=== PATIENT | female | born 1985 | race Hispanic/Latino ===

== ENCOUNTER 2017-11-17 17:48 | Emergency (ER) | payer MEDICAID ==
[2017-11-17 18:01] VITALS: BP 116/80
[2017-11-17] MEDS ORDERED: TYLENOL PO ONE (18:01)
[2017-11-17] MEDS ORDERED: TYLENOL ONE (18:03)
[2017-11-17] MEDS ORDERED: BENADRYL IM ONE (21:16)
[2017-11-17] MEDS ORDERED: DECADRON IM ONE (21:16)
[2017-11-17] MEDS ORDERED: PEPCID PO ONE (21:16)
--- NOTE | 2017-11-17 22:19 | Emergency Department Report ---
- General Chief complaint: Skin Rash Stated complaint: RASH Time Seen by Provider: 11/17/17 20:12 Source: patient Mode of arrival: Ambulatory Limitations: No Limitations - History of Present Illness Initial comments: 32-year-old female past medical history GERD, asthma, hypertension presents with complaint of itchy rash that started this morning. Denies any fevers chills nausea or vomiting. Denies any new cosmetics pets new medications or any recent travel denies any food allergies. Patient states that started in trunk and spread outward. States she has slightly sore throat and noticed a small lesion inside her mouth. Patient is awake alert and oriented 3 fully lucid states she took some Benadryl before coming to the hospital. MD complaint: rash -: This morning Location: head, face, neck, chest, back, LUE, RUE Severity: moderate Quality: other (itching) Consistency: intermittent Improves with: none Worsens with: none Context: none, recent illness Treatments Prior to Arrival: Benadryl - Related Data Previous Rx's Medication Instructions Recorded Last Taken Type Sulfamethoxazole/Trimethoprim 1 each PO BID #10 tablet 07/02/14 Unknown Rx [Bactrim Ds] Omeprazole [PriLOSEC] 20 mg PO QDAY #30 capsule.dr 10/23/14 Unknown Rx Permethrin 5% [Acticin 5% CREAM] 2 applicatio TP ONCE #2 tube 10/23/14 Unknown Rx Prednisone [Prednisone 10 mg 10 mg PO .TAPER #1 tab.ds.pk 10/23/14 Unknown Rx (6-Day Pack, 21 Tabs)] Albuterol Sulfate [Ventolin HFA] 2 puff IH Q4H PRN #1 hfa.aer.ad 04/12/15 Unknown Rx Ibuprofen [Motrin 800 MG tab] 800 mg PO TID PRN #30 tablet 04/12/15 Unknown Rx methOCARBAMOL [Robaxin] 500 mg PO BID #20 tab 04/12/15 Unknown Rx traMADol [Ultram 50 MG tab] 50 mg PO BID PRN #10 tablet 04/12/15 Unknown Rx Omeprazole Magnesium [PriLOSEC Otc] 20 mg PO QDAY #30 tablet.dr 07/10/16 Unknown Rx traMADol [Ultram 50 MG tab] 50 mg PO Q6HR PRN #16 tablet 07/10/16 Unknown Rx Colloidal Oatmeal [Oatmeal Bath] 1 each TP QDAY #1 packet 11/17/17 Unknown Rx Hydrocortisone 1% [Hydrocortisone 1 applicatio TP TID PRN #1 tube 11/17/17 Unknown Rx 1% CREAM] Hydroxyzine HCl 25 mg PO BID PRN #30 tablet 11/17/17 Unknown Rx Loratadine [Claritin] 10 mg PO DAILY PRN #30 tablet 11/17/17 Unknown Rx methylPREDNISolone [Medrol] 4 mg PO QDAY #1 tab.ds.pk 11/17/17 Unknown Rx Allergies Allergy/AdvReac Type Severity Reaction Status Date / Time No Known Allergies Allergy Verified 04/12/15 13:08 Abscess Boil HPI - HPI Chief Complaint: Skin Rash Stated Complaint: RASH Time Seen by Provider: 11/17/17 20:12 Home Medications: Previous Rx's Medication Instructions Recorded Last Taken Type Sulfamethoxazole/Trimethoprim 1 each PO BID #10 tablet 07/02/14 Unknown Rx [Bactrim Ds] Omeprazole [PriLOSEC] 20 mg PO QDAY #30 capsule. 10/23/14 Unknown Rx Permethrin 5% [Acticin 5% CREAM] 2 applicatio TP ONCE #2 tube 10/23/14 Unknown Rx Prednisone [Prednisone 10 mg 10 mg PO .TAPER #1 tab.ds.pk 10/23/14 Unknown Rx (6-Day Pack, 21 Tabs)] Albuterol Sulfate [Ventolin HFA] 2 puff IH Q4H PRN #1 hfa.aer.ad 04/12/15 Unknown Rx Ibuprofen [Motrin 800 MG tab] 800 mg PO TID PRN #30 tablet 04/12/15 Unknown Rx methOCARBAMOL [Robaxin] 500 mg PO BID #20 tab 04/12/15 Unknown Rx traMADol [Ultram 50 MG tab] 50 mg PO BID PRN #10 tablet 04/12/15 Unknown Rx Omeprazole Magnesium [PriLOSEC Otc] 20 mg PO QDAY #30 tablet. 07/10/16 Unknown Rx traMADol [Ultram 50 MG tab] 50 mg PO Q6HR PRN #16 tablet 07/10/16 Unknown Rx Colloidal Oatmeal [Oatmeal Bath] 1 each TP QDAY #1 packet 11/17/17 Unknown Rx Hydrocortisone 1% [Hydrocortisone 1 applicatio TP TID PRN #1 tube 11/17/17 Unknown Rx 1% CREAM] Hydroxyzine HCl 25 mg PO BID PRN #30 tablet 11/17/17 Unknown Rx Loratadine [Claritin] 10 mg PO DAILY PRN #30 tablet 11/17/17 Unknown Rx methylPREDNISolone [Medrol] 4 mg PO QDAY #1 tab.ds.pk 11/17/17 Unknown Rx Allergies/Adverse Reactions: Allergies Allergy/AdvReac Type Severity Reaction Status Date / Time No Known Allergies Allergy Verified 04/12/15 13:08 ED Review of Systems ROS: Stated complaint: RASH Other details as noted in HPI Constitutional: denies: chills, fever Eyes: denies: eye pain, eye discharge, vision change ENT: denies: ear pain, throat pain Respiratory: denies: cough, shortness of breath, wheezing Cardiovascular: denies: chest pain, palpitations Endocrine: no symptoms reported Gastrointestinal: denies: abdominal pain, nausea, diarrhea Genitourinary: denies: urgency, dysuria, discharge Musculoskeletal: denies: back pain, joint swelling, arthralgia Skin: rash, pruritus. denies: lesions Neurological: denies: headache, weakness, paresthesias Psychiatric: denies: anxiety, depression Hematological/Lymphatic: denies: easy bleeding, easy bruising ED Past Medical Hx - Past Medical History Hx Hypertension: Yes Hx GERD: Yes Hx Asthma: Yes - Surgical History Additional Surgical History: tubal ligation - Social History Smoking Status: Current Some Day Smoker Substance Use Type: Alcohol - Medications Home Medications: Home Medications Medication Instructions Recorded Confirmed Last Taken Type Sulfamethoxazole/Trimethoprim 1 each PO BID #10 tablet 07/02/14 Unknown Rx [Bactrim Ds] Omeprazole [PriLOSEC] 20 mg PO QDAY #30 capsule.dr 10/23/14 Unknown Rx Permethrin 5% [Acticin 5% CREAM] 2 applicatio TP ONCE #2 tube 10/23/14 Unknown Rx Prednisone [Prednisone 10 mg 10 mg PO .TAPER #1 tab.ds.pk 10/23/14 Unknown Rx (6-Day Pack, 21 Tabs)] Albuterol Sulfate [Ventolin HFA] 2 puff IH Q4H PRN #1 hfa.aer.ad 04/12/15 Unknown Rx Ibuprofen [Motrin 800 MG tab] 800 mg PO TID PRN #30 tablet 04/12/15 Unknown Rx methOCARBAMOL [Robaxin] 500 mg PO BID #20 tab 04/12/15 Unknown Rx traMADol [Ultram 50 MG tab] 50 mg PO BID PRN #10 tablet 04/12/15 Unknown Rx Omeprazole Magnesium [PriLOSEC Otc] 20 mg PO QDAY #30 tablet.dr 07/10/16 Unknown Rx traMADol [Ultram 50 MG tab] 50 mg PO Q6HR PRN #16 tablet 07/10/16 Unknown Rx Colloidal Oatmeal [Oatmeal Bath] 1 each TP QDAY #1 packet 11/17/17 Unknown Rx Hydrocortisone 1% [Hydrocortisone 1 applicatio TP TID PRN #1 tube 11/17/17 Unknown Rx 1% CREAM] Hydroxyzine HCl 25 mg PO BID PRN #30 tablet 11/17/17 Unknown Rx Loratadine [Claritin] 10 mg PO DAILY PRN #30 tablet 11/17/17 Unknown Rx methylPREDNISolone [Medrol] 4 mg PO QDAY #1 tab.ds.pk 11/17/17 Unknown Rx ED Physical Exam - General Limitations: No Limitations General appearance: alert, in no apparent distress - Head Head exam: Present: atraumatic, normocephalic - Eye Eye exam: Present: normal appearance, PERRL, EOMI - ENT ENT exam: Present: mucous membranes moist - Expanded ENT Exam Expanded Mouth exam: Present: other (2 apthous ulcers in oropharynx.) - Neck Neck exam: Present: normal inspection - Respiratory Respiratory exam: Present: normal lung sounds bilaterally. Absent: respiratory distress - Cardiovascular Cardiovascular Exam: Present: regular rate, normal rhythm. Absent: systolic murmur, diastolic murmur, rubs, gallop - GI/Abdominal GI/Abdominal exam: Present: soft, normal bowel sounds - Extremities Exam Extremities exam: Present: normal inspection - Back Exam Back exam: Present: normal inspection - Neurological Exam Neurological exam: Present: alert, oriented X3, CN II-XII intact, normal gait - Psychiatric Psychiatric exam: Present: normal affect, normal mood - Skin Skin exam: Present: warm, dry, intact, normal color. Absent: rash - Expanded Skin Exam Expanded Type of lesion: Present: rash Distribution of rash: head, face, neck, chest, back Description of rash: Present: macular, papular 1 - Maculopapular rash in this region here 2 - Nora tree like pattern on back of maculopapular rash ED Course Vital Signs 11/17/17 11/17/17 17:55 18:03 Temperature 99.8 F H Pulse Rate 104 H Respiratory 18 18 Rate Blood Pressure 116/80 O2 Sat by Pulse 99 Oximetry ED Medical Decision Making - Medical Decision Making A/P: Clinical pityriasis rosea 1-no clinical signs of angioedema or anaphylaxis. Patient speaking in full sentences, no oropharyngeal swelling. Clinical pattern of rash and distribution suggestive of pityriasis rosea 2-hydroxyzine when necessary, Claritin, Medrol Dosepak 3-follow-up with primary care and dermatology Critical care attestation.: If time is entered above; I have spent that time in minutes in the direct care of this critically ill patient, excluding procedure time. ED Disposition Clinical Impression: Pityriasis rosea Disposition: TO HOME OR SELFCARE Is pt being admited?: No Does the pt Need Aspirin: No Condition: Stable Instructions: Pityriasis rosea (ED), Acute Rash (ED), Itchy Skin (ED) Prescriptions: Colloidal Oatmeal [Oatmeal Bath] 1 each TP QDAY #1 packet Hydrocortisone 1% [Hydrocortisone 1% CREAM] 1 applicatio TP TID PRN #1 tube PRN Reason: Itching Hydroxyzine HCl 25 mg PO BID PRN #30 tablet PRN Reason: Itching Loratadine [Claritin] 10 mg PO DAILY PRN #30 tablet PRN Reason: Itching methylPREDNISolone [Medrol] 4 mg PO QDAY #1 tab.ds.pk Referrals: BRANDIE EASTON MD [Primary Care Provider] - 3-5 Days [facility] [Provider Group] - 3-5 Days [facility] [Outside] - 3-5 Days [facility] [Outside] - 3-5 Days Forms: Work/School Release Form(ED) Time of Disposition: 22:24
== END 2017-11-17 22:51 | disposition home or self-care (01) ==
LOC: ED 17:48
DX: L42 Pityriasis rosea (principal); I10 Essential (primary) hypertension; K21.9 Gastro-esophageal reflux disease without esophagitis; F17.200 Nicotine dependence, unspecified, uncomplicated
CPT/HCPCS: 96372; 99282; J1100; J1200

== ENCOUNTER 2018-12-20 08:39 | Emergency (ER) | payer MEDICAID, OTHER ==
--- NOTE | 2018-12-20 09:21 | Emergency Department Report ---
- General Chief Complaint: Upper Respiratory Infection Stated Complaint: SORETHROAT/CP/HBP Time Seen by Provider: 12/20/18 09:15 Source: patient Mode of arrival: Ambulatory Limitations: No Limitations - History of Present Illness MD Complaint: cough, sore throat, rhinorrhea, nasal congestion Severity: moderate Consistency: constant Context: sick contacts - Related Data Previous Rx's Medication Instructions Recorded Last Taken Type Sulfamethoxazole/Trimethoprim 1 each PO BID #10 tablet 07/02/14 Unknown Rx [Bactrim Ds] Omeprazole [PriLOSEC] 20 mg PO QDAY #30 capsule. 10/23/14 Unknown Rx Permethrin 5% [Acticin 5% CREAM] 2 applicatio TP ONCE #2 tube 10/23/14 Unknown Rx Prednisone [Prednisone 10 mg 10 mg PO .TAPER #1 tab.ds.pk 10/23/14 Unknown Rx (6-Day Pack, 21 Tabs)] Albuterol Sulfate [Ventolin HFA] 2 puff IH Q4H PRN #1 hfa.aer.ad 04/12/15 Unknown Rx Ibuprofen [Motrin 800 MG tab] 800 mg PO TID PRN #30 tablet 04/12/15 Unknown Rx methOCARBAMOL [Robaxin] 500 mg PO BID #20 tab 04/12/15 Unknown Rx traMADol [Ultram 50 MG tab] 50 mg PO BID PRN #10 tablet 04/12/15 Unknown Rx Omeprazole Magnesium [PriLOSEC Otc] 20 mg PO QDAY #30 tablet. 07/10/16 Unknown Rx traMADol [Ultram 50 MG tab] 50 mg PO Q6HR PRN #16 tablet 07/10/16 Unknown Rx Colloidal Oatmeal [Oatmeal Bath] 1 each TP QDAY #1 packet 11/17/17 Unknown Rx Hydrocortisone 1% [Hydrocortisone 1 applicatio TP TID PRN #1 tube 11/17/17 Unknown Rx 1% CREAM] Loratadine [Claritin] 10 mg PO DAILY PRN #30 tablet 11/17/17 Unknown Rx hydrOXYzine HCl [Hydroxyzine HCl] 25 mg PO BID PRN #30 tablet 11/17/17 Unknown Rx methylPREDNISolone [Medrol] 4 mg PO QDAY #1 tab.ds.pk 11/17/17 Unknown Rx Allergies Allergy/AdvReac Type Severity Reaction Status Date / Time No Known Allergies Allergy Verified 04/12/15 13:08 ED Review of Systems ROS: Stated complaint: SORETHROAT/CP/HBP Other details as noted in HPI Comment: All other systems reviewed and negative Constitutional: denies: chills, fever ENT: ear pain, throat pain, congestion Respiratory: cough. denies: orthopnea, shortness of breath, SOB with exertion, SOB at rest, wheezing Cardiovascular: denies: chest pain, palpitations, dyspnea on exertion Gastrointestinal: denies: abdominal pain, nausea, vomiting, diarrhea, constipation, hematemesis, melena, hematochezia Neurological: denies: headache, weakness, numbness, paresthesias, confusion ED Past Medical Hx - Past Medical History Previous Medical History?: Yes Hx Hypertension: Yes Hx GERD: Yes Hx Asthma: Yes - Surgical History Past Surgical History?: Yes Additional Surgical History: tubal ligation - Social History Smoking Status: Current Some Day Smoker Substance Use Type: Alcohol - Medications Home Medications: Home Medications Medication Instructions Recorded Confirmed Last Taken Type Sulfamethoxazole/Trimethoprim 1 each PO BID #10 tablet 07/02/14 Unknown Rx [Bactrim Ds] Omeprazole [PriLOSEC] 20 mg PO QDAY #30 capsule. 10/23/14 Unknown Rx Permethrin 5% [Acticin 5% CREAM] 2 applicatio TP ONCE #2 tube 10/23/14 Unknown Rx Prednisone [Prednisone 10 mg 10 mg PO .TAPER #1 tab.ds.pk 10/23/14 Unknown Rx (6-Day Pack, 21 Tabs)] Albuterol Sulfate [Ventolin HFA] 2 puff IH Q4H PRN #1 hfa.aer.ad 04/12/15 Unknown Rx Ibuprofen [Motrin 800 MG tab] 800 mg PO TID PRN #30 tablet 04/12/15 Unknown Rx methOCARBAMOL [Robaxin] 500 mg PO BID #20 tab 04/12/15 Unknown Rx traMADol [Ultram 50 MG tab] 50 mg PO BID PRN #10 tablet 04/12/15 Unknown Rx Omeprazole Magnesium [PriLOSEC Otc] 20 mg PO QDAY #30 tablet. 07/10/16 Unknown Rx traMADol [Ultram 50 MG tab] 50 mg PO Q6HR PRN #16 tablet 07/10/16 Unknown Rx Colloidal Oatmeal [Oatmeal Bath] 1 each TP QDAY #1 packet 11/17/17 Unknown Rx Hydrocortisone 1% [Hydrocortisone 1 applicatio TP TID PRN #1 tube 11/17/17 Unknown Rx 1% CREAM] Loratadine [Claritin] 10 mg PO DAILY PRN #30 tablet 11/17/17 Unknown Rx hydrOXYzine HCl [Hydroxyzine HCl] 25 mg PO BID PRN #30 tablet 11/17/17 Unknown Rx methylPREDNISolone [Medrol] 4 mg PO QDAY #1 tab.ds.pk 11/17/17 Unknown Rx ED Physical Exam - General Limitations: No Limitations General appearance: alert, in no apparent distress - Head Head exam: Present: atraumatic, normocephalic, normal inspection - Eye Eye exam: Present: normal appearance, PERRL - ENT ENT exam: Present: normal exam, normal orophraynx, mucous membranes moist - Neck Neck exam: Present: normal inspection, full ROM. Absent: tenderness, meningismus, lymphadenopathy, thyromegaly - Respiratory Respiratory exam: Present: normal lung sounds bilaterally. Absent: respiratory distress, wheezes, rales, rhonchi, stridor, chest wall tenderness, accessory muscle use, decreased breath sounds, prolonged expiratory - Cardiovascular Cardiovascular Exam: Present: regular rate, normal rhythm, normal heart sounds - GI/Abdominal GI/Abdominal exam: Present: soft, normal bowel sounds. Absent: distended, tende rness, guarding, rebound, rigid, organomegaly, pulsatile mass, hernia - Extremities Exam Extremities exam: Present: normal inspection, full ROM, normal capillary refill. Absent: calf tenderness - Back Exam Back exam: Present: normal inspection, full ROM. Absent: tenderness, CVA tenderness (R), CVA tenderness (L), muscle spasm, paraspinal tenderness, vertebral tenderness - Neurological Exam Neurological exam: Present: alert, oriented X3, CN II-XII intact, normal gait, reflexes normal - Psychiatric Psychiatric exam: Present: normal mood - Skin Skin exam: Present: warm, intact, normal color ED Course Vital Signs 12/20/18 08:56 Temperature 99.0 F Pulse Rate 86 Respiratory 16 Rate Blood Pressure 128/83 O2 Sat by Pulse 98 Oximetry Critical care attestation.: If time is entered above; I have spent that time in minutes in the direct care of this critically ill patient, excluding procedure time. ED Disposition Clinical Impression: URI (upper respiratory infection) Disposition: DC-01 TO HOME OR SELFCARE Is pt being admited?: No Condition: Stable Instructions: Upper Respiratory Infection (ED) Referrals: RUBIN HELLER [Primary Care Provider] - 3-5 Days
[2018-12-20 15:23] VITALS: BP 128/83
== END 2018-12-20 09:35 | disposition home or self-care (01) ==
LOC: ED 08:39
DX: J06.9 Acute upper respiratory infection, unspecified (principal); I10 Essential (primary) hypertension; K21.9 Gastro-esophageal reflux disease without esophagitis; J45.909 Unspecified asthma, uncomplicated; F17.200 Nicotine dependence, unspecified, uncomplicated; Z98.51 Tubal ligation status; Z79.899 Other long term (current) drug therapy
CPT/HCPCS: 99282

== ENCOUNTER 2019-05-14 12:38 | Emergency (ER) | payer MEDICAID, OTHER ==
[2019-05-14 12:46] VITALS: BP 113/68
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
[2019-05-14] MEDS ORDERED: IBUPROFEN PO ONE (13:41)
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
== END 2019-05-14 16:25 | disposition home or self-care (01) ==
LOC: ED 12:38
DX: S63.653A Sprain of metacarpophalangeal joint of left middle finger, initial encounter (principal); S20.212A Contusion of left front wall of thorax, initial encounter; S00.11XA Contusion of right eyelid and periocular area, initial encounter; M79.605 Pain in left leg; I10 Essential (primary) hypertension; K21.9 Gastro-esophageal reflux disease without esophagitis; J45.909 Unspecified asthma, uncomplicated; Z98.51 Tubal ligation status; Z79.899 Other long term (current) drug therapy; Y04.8XXA Assault by other bodily force, initial encounter; Y93.89 Activity, other specified; Y92.89 Other specified places as the place of occurrence of the external cause; Y99.8 Other external cause status
CPT/HCPCS: 70486; 99284